=== PATIENT | female | born 1995 | race African-American/Black ===

== ENCOUNTER 2016-05-22 19:01 | Emergency (ER) | payer OTHER ==
[~2016-05-22] VITALS: Ht 152.4 cm; Wt 47.2 kg
[2016-05-22] MEDS ORDERED: IRON325 PO (19:08)
[2016-05-22] MEDS ORDERED: IBUPROFEN 600600 M1 PO (21:00)
[2016-05-22 21:36] VITALS: BP 129/85
== END 2016-05-22 21:37 | disposition home or self-care (01) ==
LOC: ER 19:01
DX: S00.93XA Contusion of unspecified part of head, initial encounter (principal); V89.2XXA Person injured in unspecified motor-vehicle accident, traffic, initial encounter; Y93.89 Activity, other specified; Y92.89 Other specified places as the place of occurrence of the external cause; Y99.8 Other external cause status